=== PATIENT | male | born 1955 | race Two or more races ===

== ENCOUNTER 2020-09-30 11:00 | Outpatient (CLI) | payer MEDICARE, MEDICAID | END 2020-09-30 23:59 | disposition home or self-care (01) | LOC: WOU 11:00 | PROVIDERS: ATTEND Podiatrist Foot & Ankle Surgery | DX: E11.42 Type 2 diabetes mellitus with diabetic polyneuropathy (principal); E11.51 Type 2 diabetes mellitus with diabetic peripheral angiopathy without gangrene; E11.22 Type 2 diabetes mellitus with diabetic chronic kidney disease; I12.0 Hypertensive chronic kidney disease with stage 5 chronic kidney disease or end stage renal disease; N18.6 End stage renal disease; Z99.2 Dependence on renal dialysis; Z79.4 Long term (current) use of insulin; Z89.421 Acquired absence of other right toe(s); Z79.82 Long term (current) use of aspirin; Z79.899 Other long term (current) drug therapy | CPT/HCPCS: G0463 ==